=== PATIENT | male | born 1975 | race Caucasian/White ===

== ENCOUNTER 2021-03-08 17:40 | Emergency (ER) | payer OTHER ==
[~2021-03-08] VITALS: Ht 182.9 cm; Wt 89.0 kg
[2021-03-08] MEDS ORDERED: TETANUS/DIPHTHERIA TOX ADULT 0.5 ML SYR IM ONE (18:00)
[2021-03-08] MEDS ORDERED: TETANUS/DIPHTHERIA TOX ADULT 0.5 ML SYR ONE (18:11)
[2021-03-08] MEDS ORDERED: TYLENOL # 31 EA PO ×2 (19:53→20:11)
[2021-03-08] MEDS ORDERED: IBUPROFEN600 MG PO ×2 (19:57→20:13)
[2021-03-08] MEDS ORDERED: CEPHALEXIN500 MG PO ×2 (20:05→20:12)
== END 2021-03-08 20:25 | disposition home or self-care (01) ==
LOC: FSED 17:50
DX: S61.214A Laceration without foreign body of right ring finger without damage to nail, initial encounter (principal); W26.0XXA Contact with knife, initial encounter; Y92.008 Other place in unspecified non-institutional (private) residence as the place of occurrence of the external cause; I10 Essential (primary) hypertension
CPT/HCPCS: 90471; 90714; 96372; 99283